=== PATIENT | female | born 1955 | race Caucasian/White ===

== ENCOUNTER 2017-05-15 15:42 | Emergency (ER) | payer OTHER ==
[~2017-05-15] VITALS: Ht 154.9 cm; Wt 80.0 kg
[2017-05-15 15:45] VITALS: BP 116/71; PULSE 102; RESP 14; TEMP 98.9; O2SAT 98
--- NOTE | 2017-05-15 16:28 | RADRPT ---
EXAM DATE/TIME: 05/15/2017 16:05 [facility] COMPARISON: No previous studies available for comparison. INDICATIONS : Ankle pain. MEDICAL HISTORY : None. SURGICAL HISTORY : None. ENCOUNTER: Initial ACUITY: 1 week PAIN SCORE: 10/10 LOCATION: Left Ankle FINDINGS: Three view examination of the left foot demonstrates no soft tissue swelling, dislocation, or fractur e. There is chronic appearing erosive change involving the medial proximal phalanx of the great toe . The tarsal bones appear intact. The interphalangeal and metatarsophalangeal joints are intact. Th e calcaneus is intact. Bony mineralization is normal. CONCLUSION: 1. No acute fracture or dislocation. 2. Chronic appearing erosive changes of the proximal phalanx of the great toe extending to the interp halangeal joint. Query history of gout? Ranjit Moreland MD on May 15, 2017 at 16:23 Board Certified Radiologist. This report was verified electronically.
--- NOTE | 2017-05-15 16:32 | RADRPT ---
EXAM DATE/TIME: 05/15/2017 16:19 [facility] COMPARISON: No previous studies available for comparison. INDICATIONS : Ankle pain. MEDICAL HISTORY : None. SURGICAL HISTORY : None. ENCOUNTER: Initial ACUITY: 1 week PAIN SCORE: 10/10 LOCATION: Left Ankle FINDINGS: Three view exam was performed of the left ankle. There appears to be a nondisplaced oblique fracture through the distal fibular metadiaphysis, best seen on the ankle mortise view. Minimal soft tissue sw elling over the lateral malleolus. The ankle mortise is preserved. Small calcaneal spur at the planta r aponeurosis. CONCLUSION: 1. There appears to be a nondisplaced oblique fracture through the distal metadiaphysis of the fibula , best identified on the ankle mortise. Associated mild soft tissue swelling. 2. Small calcaneal spur at the plantar aponeurosis. Leobardo Robertson MD on May 15, 2017 at 16:27 Board Certified Radiologist. This report was verified electronically.
[2017-05-15] MEDS ORDERED: HYDR50TA94 PO (18:29)
[2017-05-15] MEDS ORDERED: SERO100T PO (18:29)
[2017-05-15] MEDS ORDERED: CLON.5 PO (18:29)
[2017-05-15] MEDS ORDERED: AMIT100T2 PO (18:29)
[2017-05-15] MEDS ORDERED: MOBI15TA PO (18:45)
--- NOTE | 2017-05-15 18:45 | PD ---
HPI Chief Complaint: Injury Time Seen by Provider: 18:25 Travel History International Travel<30 days: No Contact w/Intl Traveler<30days: No Traveled to known affect area: No History of Present Illness HPI 61-year-old female complains of left ankle pain. Patient states that she injured her left ankle about 12 days ago. Patient was seen in the emergency room in [place] at that time. Patient was told that she had a fracture left ankle and a splint was put on the left ankle. Patient states that the splint got dirty and she has been walking on it and she is requesting recheck on her left ankle. Patient states that she was given oxycodone for pain. PFSH Past Medical History ?: Not Past Surgical History Hysterectomy: Yes Social History Tobacco Use: No Allergies-Medications (Allergen,Severity, Reaction): Coded Allergies: Penicillins (Verified Allergy, Severe, 05/15/17) Reported Meds & Prescriptions Reported Meds & Active Scripts Active Mobic (Meloxicam) 15 Mg Tab 15 Mg PO DAILY Reported Klonopin (Clonazepam) 0.5 Mg Tab 0.5 Mg PO BID Hydroxyzine HCl 50 Mg Tab 50 Mg PO HS Seroquel (Quetiapine Fumarate) 100 Mg Tab 100 Mg PO HS Amitriptyline (Amitriptyline HCl) 100 Mg Tab 100 Mg PO HS Review of Systems General / Constitutional: No: Fever Eyes: No: Visual changes HENT: No: Headaches Cardiovascular: No: Chest Pain or Discomfort Respiratory: No: Shortness of Breath Gastrointestinal: No: Abdominal Pain Genitourinary: No: Dysuria Musculoskeletal: Positive: Pain Skin: No Rash Neurologic: No: Weakness Psychiatric: No: Depression Endocrine: No: Polydipsia Hematologic/Lymphatic: No: Easy Bruising Physical Exam Narrative GENERAL: Well-nourished, well-developed patient. SKIN: Focused skin assessment warm/dry. HEAD: Normocephalic. EYES: No scleral icterus. No injection or drainage. NECK: Supple, trachea midline. No JVD or lymphadenopathy. CARDIOVASCULAR: Regular rate and rhythm without murmurs, gallops, or rubs. RESPIRATORY: Breath sounds equal bilaterally. No accessory muscle use. GASTROINTESTINAL: Abdomen soft, non-tender, nondistended. MUSCULOSKELETAL: No cyanosis, or edema. Patient has moderate tenderness on palpation of the lateral malleolus area of the left ankle and dorsal aspect of the left foot. Full range of motion of the toes. Good capillary refill. BACK: Nontender without obvious deformity. No CVA tenderness. Data Data Last Documented VS Vital Signs Date Time Temp Pulse Resp B/P (MAP) Pulse Ox O2 Delivery O2 Flow Rate FiO2 05/15/17 15:45 98.9 102 14 116/71 (86) 98 Room Air Orders Orders Foot, Complete ([id number]) (05/15/17 ) Ankle, Complete ([id number]) (05/15/17 ) Splint Or Brace Apply/Monitor (05/15/17 18:33) Ed Discharge Order (05/15/17 18:45) Fiberglass Short Leg Splint Ad (05/15/17 ) Fiberglass Sugartong Sp Ad Sl (05/15/17 ) MDM Medical Decision Making Medical Screen Exam Complete: Yes Emergency Medical Condition: Yes Differential Diagnosis Differential diagnosis including fracture. Narrative Course 61-year-old female with history of fracture left ankle requesting recheck. Splint was removed and replaced with new splint. Patient has crutches and wheelchair at home. Diagnosis Primary Impression: Fracture, fibula closed, shaft Qualified Codes: S82.435A - Nondisplaced oblique fracture of shaft of left fibula, initial encounter for closed fracture Patient Instructions: General Instructions Additional Instructions: Mobic as needed for pain. Follow-up with orthopedist. Med/Other Pt SpecificInfo: Prescription(s) given Scripts Meloxicam (Mobic) 15 Mg Tab 15 MG PO DAILY for Pain, #20 TAB 0 Refills Prov: Mono Dennis MD 05/15/17 Disposition: 01 DISCHARGE HOME Condition: Stable Mono Dennis MD May 15, 2017 18:45
== END 2017-05-15 22:58 | disposition home or self-care (01) ==
LOC: NEPD 15:42
DX: S82.435A Nondisplaced oblique fracture of shaft of left fibula, initial encounter for closed fracture (principal)
CPT/HCPCS: 29515; 73610; 73630